=== PATIENT | female | born 1940 | race Caucasian/White ===

== ENCOUNTER 2016-11-25 07:43 | Day surgery (SDC) | payer OTHER ==
[~2016-11-25] VITALS: Ht 168.9 cm; Wt 83.9 kg
[2016-11-25] MEDS ORDERED: NS 1000P @30 MLS/HR (KVO) IV SCH (08:00)
[2016-11-25 08:18] VITALS: BP 190/89; PULSE 68; RESP 18; TEMP 97.8; O2SAT 98
[2016-11-25] MEDS ORDERED: METO25TA3 PO (08:22)
[2016-11-25] MEDS ORDERED: ASPI1TAB69 PO (08:22)
[2016-11-25] MEDS ORDERED: SIMV20TA PO (08:22)
[2016-11-25] MEDS ORDERED: NITR0.4S SL (08:22)
[2016-11-25] MEDS ORDERED: LEVO50TA4 PO (08:22)
[2016-11-25] MEDS ORDERED: diphenhydrAMINE HCL 50 MG CAP ONE (08:24)
[2016-11-25 08:27] LABS: AUTOMATED NEUTROPHIL # 4.2 TH/MM3 (1.8-7.7); BASOPHIL # 0.1 TH/MM3 (0-0.2); EOSINOPHIL # 0.4 TH/MM3 (0-0.4); EOSINOPHIL % 6.4 % (0.0-4.0); HEMATOCRIT 32.7 % (35.0-46.0); LYMPH % 21.7 % (9.0-44.0); LYMPHOCYTE # 1.4 TH/MM3 (1.0-4.8); MEAN CELL VOLUME 75.9 FL (80.0-100.0); MEAN CORPUSCULAR HEMOGLOBIN 24.5 PG (27.0-34.0); MEAN CORPUSCULAR HGB CONC 32.3 % (32.0-36.0); MONO % 6.9 % (0.0-8.0); PLATELET COUNT 248 TH/MM3 (150-450); RED BLOOD COUNT 4.31 MIL/MM3 (4.00-5.30); RED CELL DISTRIBUTION WIDTH 18.7 % (11.6-17.2); WHITE BLOOD COUNT 6.5 TH/MM3 (4.0-11.0)
[2016-11-25] MEDS ORDERED: diphenhydrAMINE HCL 50 MG CAP PO SCH (08:30)
[2016-11-25 08:33] LABS: HEMO FLAGS AUTO DIFF
[2016-11-25 08:37] LABS: APTT (PATIENT) 24.6 SEC (24.3-30.1); INTERNATIONAL NORMALIZED RATIO 0.9 RATIO
[2016-11-25] MEDS ORDERED: MIDAZOLAM HCL 2 MG/2 ML VIAL ONE (08:39)
[2016-11-25] MEDS ORDERED: HEPARIN-NS/PF INJ 500 ML ONE (08:42)
[2016-11-25] MEDS ORDERED: VERAPAMIL HCL 5 MG/2 ML VIAL ONE (08:54)
[2016-11-25] MEDS ORDERED: NITROGLYCERIN INJ 5 ML ONE (08:55)
[2016-11-25] MEDS ORDERED: HEPARIN SODIUM - IV 10,000 UNITS/10 ML VIAL ONE (08:55)
[2016-11-25 09:03] LABS: OVALOCYTES 1+ (NORMAL); SCAN/DIFF AUTO DIFF CONFIRMED
[2016-11-25 09:05] LABS: BICARBONATE 29.1 MEQ/L (21.0-32.0); POTASSIUM 4.3 MEQ/L (3.5-5.1)
[2016-11-25] MEDS ORDERED: MISC INFORMATION XX ONE (09:45)
[2016-11-25] MEDS ORDERED: SODIUM CHLORIDE 0.9% FLUSH 5 ML FLUSH IVF PRN (09:45)
[2016-11-25] MEDS ORDERED: LABETALOL HCL 100 MG/20 ML VIAL ONE (10:55)
--- NOTE | 2016-11-25 12:26 | MA ---
cc: SHERMAN CAMILO DATE 11/25/2016 DATE OF 1940 PROCEDURE PERFORMED 1. Left heart catheterization 2. Right heart catheterization 3. Left ventriculogram INDICATION Worsening shortness of breath with minimal exertion/angina equivalent APPROACH Right transradial and the right common femoral vein. PROCEDURE DESCRIPTION Consent was signed. The patient was brought into the cardiac laboratory tech in a fasting state. The right wrist and groin were prepped and draped in a sterile fashion. Using 1% lidocaine for local anesthesia and micropuncture kit, a 6- Malay sheath was inserted into the right radial artery and to the right femoral vein. Selective right and left coronary angiography was performed through the right radial artery with a JR-4 and a JL-3.5. Antispasmodic cocktail given. Angiography was performed in multiple views. An angled pigtail was introduced into the left ventricle followed by pressure recordings, ventriculogram and pullback. Then a 5-Malay [place] was floated from the common femoral vein, wedge pressures were recorded on the main pulmonary artery on the right ventricle and on the right atrium. The patient tolerated the procedure well without complications. Estimated blood loss less than 30 cc. TOTAL CONTRAST USED 75 cc. The right radial access site was closed with a TR band and the right femora vein access site was closed with manual pressure. RESULTS LEFT VENTRICLE The left ventricular pressure was 149/80 with an LVEDP of 16. The aortic pressure was 125/66 with a mean of 91. The left ventricle is symmetrically grabiel with an estimated ejection fraction of 60%. RIGHT HEART CATH PRESSURES The wedge pressure had a mean of 16. Then main pulmonary artery was 29/10 with a mean of 17. The right ventricular pressure was 29/2 with a mean of 6 and the right atrial pressure was 6/4 with a mean of 3. ANGIOGRAPHY 1. Right coronary artery: Dominant. Minimal luminal irregularities and has a proximal 30% lesion, a distal 20% lesion. The PDA is patent with HARRY-3 flow and nonobstructive coronary artery disease. 2. The left main is short and has nonobstructive coronary artery disease. 3. LAD is patent with minimal luminal irregularities, tortuous, mildly calcified , and transapical. It has one diagonal which is patent also and with nonobstructive coronary artery disease. 4. The left circumflex artery has a 20% lesion proximally and has HARRY-3 flow and nonobstructive coronary artery disease. Is giving off three OM's, the first one is a small vessel. The second one and third one are prominent vessels going all the way out to the lateral wall. They have nonobstructive coronary artery disease and HARRY-3 flow. CONCLUSION 1. Normal coronary arteries. 2. Preserved LV systolic function. 3. Normal right heart cath recordings. RECOMMENDATIONS Continue medical management for primary prevention of CAD. The patient should follow up with her small engine mechanic and with me as scheduled. MD MUKESH Reich/LONNIE /9:51 AM /12:07 PM MTDD
[2016-11-25] MEDS ORDERED: SODIUM CHLORIDE 0.9% FLUSH 5 ML FLUSH IVF SCH (21:00)
--- NOTE | 2016-11-25 21:48 | EKG ---
Date Performed: 11/25/2016 Time Performed: 08:22:30 PTAGE: 75 years EKG: Sinus rhythm Poor R wave progression - probable normal variant Borderline ECG NO PREVIOUS TRACING DOCTOR: James Alfaro Interpretating Date/Time 11/25/2016 21:47:34
== END 2016-11-25 14:58 | disposition home or self-care (01) ==
LOC: HDOC 07:43 → HDIC 07:43 → HDOC 14:58
PROVIDERS: ATTEND Radiology Vascular & Interventional Radiology
DX: I25.10 Atherosclerotic heart disease of native coronary artery without angina pectoris (principal); R00.2 Palpitations; I10 Essential (primary) hypertension; E03.9 Hypothyroidism, unspecified; E78.5 Hyperlipidemia, unspecified; Z01.818 Encounter for other preprocedural examination
CPT/HCPCS: 80048; 85025; 85610; 85730; 93005; 93460; C1769; C1893; J1644; J2250; J3010; Q0163